=== PATIENT | male | born 1955 | race Two or more races ===

== ENCOUNTER 2021-06-18 11:58 | Inpatient (IN) | payer OTHER, MEDICARE ==
[2021-06-18] VITALS (7 sets, daily range): BP systolic 103–124; BP diastolic 66–88
[~2021-06-18] VITALS: Ht 154.3 cm; Wt 99.3 kg
[2021-06-18] MEDS ORDERED: cefTRIAXone 1GM/50ML D5W 50 ML IV ONE (12:15)
[2021-06-18] MEDS ORDERED: DOXYCYCLINE 100MG/250ML 250 ML IV ONE (12:15)
[2021-06-18] MEDS ORDERED: DexAMETHasone SOD PHOS 10MG/1ML VIAL INJ IV ONE (12:15)
[2021-06-18 12:43] LABS: Urine Bacteria NONE SEEN /hpf (None Seen); Urine Blood 2+ /uL (Negative); Urine Hyaline Cast FEW /lpf (0 - 2); Urine Mucus FEW (None Seen); Urine Specific Gravity 1.017 (1.001-1.035); Urine WBC 2 /hpf (0 - 3)
[2021-06-18 12:44] LABS: Basophils # (auto) 0 10 ^3/uL (0-0.2); Basophils % (auto) 0.2 % (0.0-2.0); Eosinophils # (auto) 0 10 ^3/uL (0-0.8); Hematocrit 43.6 % (41.0-53.0); Hemoglobin 15.4 g/dL (13.5-17.5); Lymphocytes # (auto) 0.5 10 ^3/uL (0.4-5.4); Lymphocytes % (auto) 4.4 % (10.0-50.0); Mean Corpuscular Hemoglobin 32.2 pg (28.0-32.0); Mean Corpuscular Hgb Conc. 35.3 g/dL (32.0-36.0); Mean Corpuscular Volume 91.3 fL (80.0-100.0); Monocytes # (auto) 0.7 10 ^3/uL (0-1.3); Monocytes % (auto) 5.9 % (0.0-12.0); Neutrophils # (auto) 9.9 10 ^3/uL (1.6-8.6); Neutrophils % (auto) 89.5 % (37.0-80.0); Nucleated Red Blood Cells % 0.3 %; Red Blood Cells 4.77 10^6/uL (4.5-5.90); Red Cell Distribution Width 12.6 % (11.8-14.3)
[2021-06-18 13:00] LABS: Albumin 2.6 g/dL (3.4-5.0); Calcium 7.8 mg/dL (8.5-10.1); Potassium 3.8 mmol/L (3.5-5.1)
[2021-06-18 13:02] LABS: Lactic Acid w/Reflex 4.6 mmol/L (0.4-2.0)
[2021-06-18 13:24] LABS: BUN/Creatinine Ratio 21.4; Bilirubin, Total 1.2 mg/dL (0.2-1.0); Total Protein 6.9 g/dL (6.4-8.2)
[2021-06-18] MEDS ORDERED: ENOXAPARIN SOD 80 MG/0.8ML SYRINGE SC ONE (13:45)
[2021-06-18] MEDS ORDERED: REMDESIVIR PER PHARMACY 0 ML IV SCH (14:30)
[2021-06-18] MEDS ORDERED: ACETAMINOPHEN 500 MG TAB PO PRN ×2 (14:30)
[2021-06-18] MEDS ORDERED: ALBUTEROL SULF HFA 90MCG INH 200DOSE IN PRN (14:30)
[2021-06-18] MEDS ORDERED: SODIUM CHLORIDE 0.9% 1,000 ML IV ONE (14:30)
[2021-06-18] MEDS ORDERED: HYDROcodone-ACET 5/325MG TAB PO PRN (14:30)
[2021-06-18] MEDS ORDERED: MORPHINE SULFATE INJECTION 2 MG/ML SYRG IV PRN ×2 (14:30)
[2021-06-18] MEDS ORDERED: NITROGLYCERIN 0.4 MG SL TAB SL PRN (14:30)
[2021-06-18] MEDS: DOXYCYCLINE 100MG/250ML 250 ML IV SCH (21:57)
[2021-06-18] MEDS: ENOXAPARIN SOD 40 MG/0.4 ML SYRINGE SC SCH (21:58)
[2021-06-18] MEDS ORDERED: BUDESONIDE (INHALATION) 180 MCG IH IN SCH (22:00)
[2021-06-18] MEDS ORDERED: BUDESONIDE (INHALATION) 0.5 MG/2 ML NEB ONE (22:39)
[2021-06-18] MEDS: ALBUTEROL SULF 2.5 MG/0.5ML(0.5%) NEB SOLN NEB PRN (22:55)
[2021-06-19] VITALS (9 sets, daily range): BP systolic 118–132; BP diastolic 77–92
[2021-06-19] MEDS: ALBUTEROL SULF 2.5 MG/0.5ML(0.5%) NEB SOLN NEB PRN ×3 (05:51→21:44)
[2021-06-19] MEDS: BUDESONIDE (INHALATION) 0.5 MG/2 ML NEB NEB SCH ×2 (05:51→21:44)
[2021-06-19] MEDS: ZINC SULFATE 220mg CAP or TAB PO SCH (10:00)
[2021-06-19] MEDS: DOXYCYCLINE 100MG/250ML 250 ML IV SCH ×2 (10:00→21:53)
[2021-06-19] MEDS: cefTRIAXone 1GM/50ML D5W 50 ML IV SCH (10:40)
[2021-06-19] MEDS: DexAMETHasone SOD PHOS 10MG/1ML VIAL INJ IV SCH (10:50)
[2021-06-19] MEDS: CHOLECALCIFEROL (VITD3) 2,000 UNIT CAP/TAB PO SCH (10:50)
[2021-06-19] MEDS: ASCORBIC ACID 1,000 MG TAB PO SCH (10:50)
[2021-06-19] MEDS: IVERMECTIN 3 MG TAB PO SCH (10:50)
[2021-06-19] MEDS: ENOXAPARIN SOD 40 MG/0.4 ML SYRINGE SC SCH ×2 (10:51→21:53)
[2021-06-20] VITALS (8 sets, daily range): BP systolic 105–140; BP diastolic 79–94
[2021-06-20] MEDS: NOREPINEPHRINE 8 MG/250ML KIT 250 ML IV SCH (03:15)
[2021-06-20 08:31] LABS: Hemoglobin 13.1 g/dL (13.5-17.5); Mean Corpuscular Hemoglobin 32.1 pg (28.0-32.0); Mean Corpuscular Hgb Conc. 35.5 g/dL (32.0-36.0); Mean Corpuscular Volume 90.5 fL (80.0-100.0); Red Blood Cells 4.09 10^6/uL (4.5-5.90); Red Cell Distribution Width 12.7 % (11.8-14.3); White Blood Cell 15.8 10^3/uL (4.4-10.8)
[2021-06-20 08:44] LABS: BUN/Creatinine Ratio 21.4; Calcium 8.1 mg/dL (8.5-10.1); Potassium 3.6 mmol/L (3.5-5.1)
[2021-06-20 08:55] LABS: Basophils % (manual) 0 (0.0-2.0); Blast Cells 0; Eosinophils % (manual) 0 (0-7); Promyelocytes % 0; Reactive Lymphocytes 0
[2021-06-20] MEDS: cefTRIAXone 1GM/50ML D5W 50 ML IV SCH (09:26)
[2021-06-20] MEDS: ZINC SULFATE 220mg CAP or TAB PO SCH (09:27)
[2021-06-20] MEDS: DexAMETHasone SOD PHOS 10MG/1ML VIAL INJ IV SCH (09:27)
[2021-06-20] MEDS: IVERMECTIN 3 MG TAB PO SCH (09:27)
[2021-06-20] MEDS: ASCORBIC ACID 1,000 MG TAB PO SCH (09:28)
[2021-06-20] MEDS: CHOLECALCIFEROL (VITD3) 2,000 UNIT CAP/TAB PO SCH (09:28)
[2021-06-20] MEDS: ENOXAPARIN SOD 40 MG/0.4 ML SYRINGE SC SCH ×2 (09:29→22:24)
[2021-06-20] MEDS ORDERED: REMDESIVIR PER PHARMACY 0 ML IV SCH ×2 (09:45→10:00)
[2021-06-20] MEDS: BUDESONIDE (INHALATION) 0.5 MG/2 ML NEB NEB SCH ×2 (10:00→23:08)
[2021-06-20] MEDS: DOXYCYCLINE 100MG/250ML 250 ML IV SCH ×2 (10:43→22:24)
[2021-06-20] MEDS ORDERED: REMDESIVIR 200 MG in NS 210ml LOADING DOSE ADULT IV ONE (11:00)
[2021-06-20] MEDS: ALBUTEROL SULF 2.5 MG/0.5ML(0.5%) NEB SOLN NEB PRN ×2 (11:16→23:08)
[2021-06-20 11:28] LABS: Band Neutrophils % (manual) 2; Lymphocytes % (manual) 4 (10.0-50.0); Metamyelocytes % 3; Monocytes % (manual) 3 (0-12); Myelocytes % 1
[2021-06-20] MEDS ORDERED: LORazepam 2MG/ML-1ML VIAL IV ONE (17:30)
[2021-06-20] MEDS ORDERED: LORazepam 2MG/ML-1ML VIAL ONE (17:31)
[2021-06-20] MEDS ORDERED: SUCCINYLCHOLINE CHLORIDE 20 MG/ML 10ML VIAL IV ONE ×2 (18:40→18:45)
[2021-06-20] MEDS ORDERED: MIDAZOLAM DRIP 50 mg/50mL 50 ML IV ONE (18:40)
[2021-06-20] MEDS ORDERED: ETOMIDATE (2MG/ML) 20ML VIAL IV ONE ×2 (18:40→18:45)
[2021-06-20] MEDS ORDERED: fentaNYL Drip 2500mCg/250mlNS 250 ML IV SCH (18:45)
[2021-06-20] MEDS ORDERED: PROPOFOL 100 ML IV ONE (18:55)
[2021-06-20] MEDS: PROPOFOL 100 ML IV SCH (19:00)
[2021-06-20] MEDS: MIDAZOLAM DRIP 50 mg/50mL 50 ML IV SCH ×2 (19:00→23:45)
[2021-06-20] MEDS: fentaNYL Drip 2500mCg/250mlNS 250 ML IV SCH (20:20)
[2021-06-20] MEDS ORDERED: MORPHINE SULFATE INJECTION 2 MG/ML SYRG IV ONE (20:45)
[2021-06-20] MEDS: ROCURONIUM 10MG/ML 10ML VIAL IV PRN (21:51)
[2021-06-21] VITALS (9 sets, daily range): BP systolic 90–107; BP diastolic 56–73
[2021-06-21] MEDS: MIDAZOLAM DRIP 50 mg/50mL 50 ML IV SCH ×4 (04:45→21:05)
[2021-06-21] MEDS: ALBUTEROL SULF 2.5 MG/0.5ML(0.5%) NEB SOLN NEB PRN ×2 (06:27→22:00)
[2021-06-21] MEDS: BUDESONIDE (INHALATION) 0.5 MG/2 ML NEB NEB SCH ×2 (06:28→22:00)
[2021-06-21 07:36] LABS: Hematocrit 39.5 % (41.0-53.0); Hemoglobin 13.5 g/dL (13.5-17.5); Mean Corpuscular Hemoglobin 32.3 pg (28.0-32.0); Mean Corpuscular Hgb Conc. 34.2 g/dL (32.0-36.0); Mean Corpuscular Volume 94.6 fL (80.0-100.0); Red Blood Cells 4.17 10^6/uL (4.5-5.90); Red Cell Distribution Width 13.1 % (11.8-14.3); White Blood Cell 24.1 10^3/uL (4.4-10.8)
[2021-06-21 07:49] LABS: Band Neutrophils % (manual) 0; Basophils % (manual) 0 (0.0-2.0); Blast Cells 0; Eosinophils % (manual) 0 (0-7); Metamyelocytes % 0; Myelocytes % 0; Promyelocytes % 0; Reactive Lymphocytes 0
[2021-06-21 07:54] LABS: Albumin 2.3 g/dL (3.4-5.0); BUN/Creatinine Ratio 18.8; Bilirubin, Total 1.3 mg/dL (0.2-1.0); Calcium 7.9 mg/dL (8.5-10.1); Total Protein 6.3 g/dL (6.4-8.2)
[2021-06-21] MEDS ORDERED: SODIUM BICARBONATE 50ML VIAL 75 ML in SOD CHL 0.45% 1,000 ML IV ONE (09:00)
[2021-06-21] MEDS: cefTRIAXone 1GM/50ML D5W 50 ML IV SCH (09:25)
[2021-06-21] MEDS ORDERED: PANTOPRAZOLE 40 MG/10 ML VIAL INJ IV SCH (10:00)
[2021-06-21] MEDS: DexAMETHasone SOD PHOS 10MG/1ML VIAL INJ IV SCH (10:10)
[2021-06-21] MEDS: ENOXAPARIN SOD 40 MG/0.4 ML SYRINGE SC SCH ×2 (10:10→22:10)
[2021-06-21] MEDS: ASCORBIC ACID 1,000 MG TAB PO SCH (10:11)
[2021-06-21] MEDS: PANTOPRAZOLE 40 MG TAB PO SCH (10:11)
[2021-06-21] MEDS: IVERMECTIN 3 MG TAB PO SCH (10:11)
[2021-06-21] MEDS: ZINC SULFATE 220mg CAP or TAB PO SCH (10:11)
[2021-06-21] MEDS: CHOLECALCIFEROL (VITD3) 2,000 UNIT CAP/TAB PO SCH (10:11)
[2021-06-21] MEDS: DOXYCYCLINE 100MG/250ML 250 ML IV SCH ×2 (10:24→22:10)
[2021-06-21 14:35] LABS: Lymphocytes % (manual) 1 (10.0-50.0); Monocytes % (manual) 5 (0-12)
[2021-06-21] MEDS ORDERED: REMDESIVIR 100mg 100 MG in SODIUM CHL 0.9% 230 ML IV SCH (15:00)
[2021-06-21] MEDS: fentaNYL Drip 2500mCg/250mlNS 250 ML IV SCH (15:28)
[2021-06-21] MEDS: PROPOFOL 100 ML IV SCH (15:38)
[2021-06-21] MEDS ORDERED: SODIUM BICARBONATE 8.4% INJ 50ML SYRINGE ONE (17:23)
[2021-06-21] MEDS ORDERED: SODIUM BICARBONATE 8.4 % INJ 50ML VIAL IV ONE (17:30)
[2021-06-21] MEDS: NOREPINEPHRINE 8 MG/250ML KIT 250 ML IV SCH (21:06)
[2021-06-22] VITALS (12 sets, daily range): BP systolic 96–110; BP diastolic 61–72
[2021-06-22] MEDS: MIDAZOLAM DRIP 50 mg/50mL 50 ML IV SCH ×5 (00:45→21:01)
[2021-06-22] MEDS: BUDESONIDE (INHALATION) 0.5 MG/2 ML NEB NEB SCH (05:51)
[2021-06-22] MEDS: ALBUTEROL SULF 2.5 MG/0.5ML(0.5%) NEB SOLN NEB PRN (05:51)
[2021-06-22 06:09] LABS: Hematocrit 34.2 % (41.0-53.0); Hemoglobin 12.3 g/dL (13.5-17.5); Mean Corpuscular Hemoglobin 33.2 pg (28.0-32.0); Mean Corpuscular Hgb Conc. 35.9 g/dL (32.0-36.0); Mean Corpuscular Volume 92.4 fL (80.0-100.0); Red Blood Cells 3.71 10^6/uL (4.5-5.90); Red Cell Distribution Width 12.9 % (11.8-14.3)
[2021-06-22 06:26] LABS: Potassium 4.6 mmol/L (3.5-5.1)
[2021-06-22 06:35] LABS: BUN/Creatinine Ratio 17.2; Bilirubin, Total 1.5 mg/dL (0.2-1.0); Calcium 7.3 mg/dL (8.5-10.1); Total Protein 5.6 g/dL (6.4-8.2)
[2021-06-22 07:00] LABS: Basophils % (manual) 0 (0.0-2.0); Blast Cells 0; Eosinophils % (manual) 0 (0-7); Metamyelocytes % 0; Promyelocytes % 0; Reactive Lymphocytes 0
[2021-06-22 08:29] LABS: Albumin 0.2 g/dL (3.4-5.0)
[2021-06-22] MEDS: cefTRIAXone 1GM/50ML D5W 50 ML IV SCH (09:00)
[2021-06-22] MEDS: DexAMETHasone SOD PHOS 10MG/1ML VIAL INJ IV SCH (09:33)
[2021-06-22] MEDS: ZINC SULFATE 220mg CAP or TAB PO SCH (09:34)
[2021-06-22] MEDS: ENOXAPARIN SOD 40 MG/0.4 ML SYRINGE SC SCH ×2 (09:34→22:05)
[2021-06-22] MEDS: PANTOPRAZOLE 40 MG TAB PO SCH (09:34)
[2021-06-22] MEDS: CHOLECALCIFEROL (VITD3) 2,000 UNIT CAP/TAB PO SCH (09:34)
[2021-06-22] MEDS: ASCORBIC ACID 1,000 MG TAB PO SCH (09:34)
[2021-06-22] MEDS: IVERMECTIN 3 MG TAB PO SCH (09:34)
[2021-06-22] MEDS: DOXYCYCLINE 100MG/250ML 250 ML IV SCH ×2 (10:20→22:05)
[2021-06-22 16:42] LABS: Band Neutrophils % (manual) 1; Lymphocytes % (manual) 3 (10.0-50.0); Monocytes % (manual) 3 (0-12); Myelocytes % 1
[2021-06-22] MEDS ORDERED: BUMETANIDE 2.5mg/10ml (0.25 mg/ml) INJ IV ONE (17:15)
[2021-06-22] MEDS: PROPOFOL 100 ML IV SCH (18:41)
[2021-06-22] MEDS: NOREPINEPHRINE 8 MG/250ML KIT 250 ML IV SCH (20:30)
[2021-06-22] MEDS: fentaNYL Drip 2500mCg/250mlNS 250 ML IV SCH (21:06)
[2021-06-23] VITALS (8 sets, daily range): BP systolic 109–117; BP diastolic 40–76
[2021-06-23] MEDS: MIDAZOLAM DRIP 50 mg/50mL 50 ML IV SCH ×5 (01:45→18:36)
[2021-06-23] MEDS: BUDESONIDE (INHALATION) 0.5 MG/2 ML NEB NEB SCH ×3 (03:59→22:26)
[2021-06-23] MEDS: ALBUTEROL SULF 2.5 MG/0.5ML(0.5%) NEB SOLN NEB PRN ×2 (06:58→22:26)
[2021-06-23 07:11] LABS: Albumin 1.7 g/dL (3.4-5.0); BUN/Creatinine Ratio 15.9; Calcium 7.3 mg/dL (8.5-10.1)
[2021-06-23 07:14] LABS: Total Protein 5.7 g/dL (6.4-8.2)
[2021-06-23 07:21] LABS: Hematocrit 35.2 % (41.0-53.0); Hemoglobin 12.2 g/dL (13.5-17.5); Mean Corpuscular Hemoglobin 32.7 pg (28.0-32.0); Mean Corpuscular Hgb Conc. 34.6 g/dL (32.0-36.0); Mean Corpuscular Volume 94.4 fL (80.0-100.0); Red Blood Cells 3.73 10^6/uL (4.5-5.90); White Blood Cell 16.9 10^3/uL (4.4-10.8)
[2021-06-23 07:22] LABS: Basophils % (manual) 0 (0.0-2.0); Blast Cells 0; Eosinophils % (manual) 0 (0-7); Myelocytes % 0; Promyelocytes % 0; Reactive Lymphocytes 0
[2021-06-23 08:21] LABS: Band Neutrophils % (manual) 9; Lymphocytes % (manual) 3 (10.0-50.0); Metamyelocytes % 1; Monocytes % (manual) 3 (0-12)
[2021-06-23] MEDS: cefTRIAXone 1GM/50ML D5W 50 ML IV SCH (09:00)
[2021-06-23] MEDS: DexAMETHasone SOD PHOS 10MG/1ML VIAL INJ IV SCH (10:00)
[2021-06-23] MEDS: CHOLECALCIFEROL (VITD3) 2,000 UNIT CAP/TAB PO SCH (10:00)
[2021-06-23] MEDS: IVERMECTIN 3 MG TAB PO SCH (10:00)
[2021-06-23] MEDS: ASCORBIC ACID 1,000 MG TAB PO SCH (10:00)
[2021-06-23] MEDS: PANTOPRAZOLE 40 MG TAB PO SCH (10:00)
[2021-06-23] MEDS: DOXYCYCLINE 100MG/250ML 250 ML IV SCH (10:00)
[2021-06-23] MEDS: ZINC SULFATE 220mg CAP or TAB PO SCH (10:00)
[2021-06-23] MEDS: ENOXAPARIN SOD 40 MG/0.4 ML SYRINGE SC SCH (10:00)
[2021-06-23] MEDS: NOREPINEPHRINE 8 MG/250ML KIT 250 ML IV SCH (18:37)
[2021-06-23] MEDS: fentaNYL Drip 2500mCg/250mlNS 250 ML IV SCH (21:26)
[2021-06-23] MEDS: PROPOFOL 100 ML IV SCH (21:45)
[2021-06-23] MEDS ORDERED: HEPARIN SODIUM (PORCINE) 5000 UNITS/ML 1ML VIAL ONE (23:59)
[2021-06-24] VITALS (13 sets, daily range): BP systolic 82–125; BP diastolic 48–72
[2021-06-24] MEDS: HEPARIN SODIUM (PORCINE) 5000 UNITS/ML 1ML VIAL SC SCH ×3 (00:01→22:19)
[2021-06-24] MEDS: MIDAZOLAM DRIP 50 mg/50mL 50 ML IV SCH ×5 (01:26→22:45)
[2021-06-24] MEDS ORDERED: PROPOFOL 100 ML IV ONE (04:03)
[2021-06-24] MEDS ORDERED: BUDESONIDE (INHALATION) 0.5 MG/2 ML NEB ONE (05:29)
[2021-06-24] MEDS ORDERED: MIDAZOLAM DRIP 50 mg/50mL 50 ML IV ONE ×2 (06:32)
[2021-06-24 06:41] LABS: Hematocrit 35.5 % (41.0-53.0); Hemoglobin 12.3 g/dL (13.5-17.5); Mean Corpuscular Hemoglobin 32.7 pg (28.0-32.0); Mean Corpuscular Hgb Conc. 34.8 g/dL (32.0-36.0); Mean Corpuscular Volume 94.1 fL (80.0-100.0); Red Blood Cells 3.77 10^6/uL (4.5-5.90); Red Cell Distribution Width 12.8 % (11.8-14.3); White Blood Cell 14.7 10^3/uL (4.4-10.8)
[2021-06-24 06:54] LABS: Basophils % (manual) 0 (0.0-2.0); Blast Cells 0; Eosinophils % (manual) 0 (0-7); Myelocytes % 0; Promyelocytes % 0; Reactive Lymphocytes 0
[2021-06-24 06:56] LABS: Albumin 1.7 g/dL (3.4-5.0); Calcium 7.3 mg/dL (8.5-10.1)
[2021-06-24 07:00] LABS: BUN/Creatinine Ratio 16.6; Bilirubin, Total 2.3 mg/dL (0.2-1.0); Total Protein 6.1 g/dL (6.4-8.2)
[2021-06-24] MEDS: BUDESONIDE (INHALATION) 0.5 MG/2 ML NEB NEB SCH ×2 (07:36→18:54)
[2021-06-24 07:40] LABS: Band Neutrophils % (manual) 3; Lymphocytes % (manual) 3 (10.0-50.0); Metamyelocytes % 1; Monocytes % (manual) 4 (0-12)
[2021-06-24] MEDS ORDERED: SODIUM BICARBONATE 8.4 % INJ 50ML VIAL IV ONE ×2 (09:15→10:30)
[2021-06-24 09:20] LABS: Potassium 5.7 mmol/L (3.5-5.1)
[2021-06-24] MEDS: PANTOPRAZOLE 40 MG TAB PO SCH (10:00)
[2021-06-24] MEDS: cefTRIAXone 1GM/50ML D5W 50 ML IV SCH (10:19)
[2021-06-24] MEDS: ZINC SULFATE 220mg CAP or TAB PO SCH (10:20)
[2021-06-24] MEDS: DexAMETHasone SOD PHOS 10MG/1ML VIAL INJ IV SCH (10:20)
[2021-06-24] MEDS: ASCORBIC ACID 1,000 MG TAB PO SCH (10:21)
[2021-06-24] MEDS: CHOLECALCIFEROL (VITD3) 2,000 UNIT CAP/TAB PO SCH (10:21)
[2021-06-24] MEDS ORDERED: SODIUM BICARBONATE 50ML VIAL 50 ML in SOD CHL 0.45% 1,000 ML IV ONE (13:00)
[2021-06-24] MEDS: SODIUM BICARBONATE 50ML VIAL 150 ML in D5W 5% 1,000 ML IV SCH (13:41)
[2021-06-24] MEDS ORDERED: CALCIUM CHL 100MG/ML 1,000 MG in D5W 5% 100 ML IV ONE (15:15)
[2021-06-24] MEDS ORDERED: DEXTROSE (50%) 50ML SYRG IV ONE (15:15)
[2021-06-24] MEDS ORDERED: InsuLIN REG 1unit/0.01ml Soln (100units/ml) IV ONE (15:15)
[2021-06-24] MEDS ORDERED: Jevity 1.2 Cal/Fiber 1 Liter GT SCH (16:45)
[2021-06-24] MEDS: PROPOFOL 100 ML IV SCH (17:57)
[2021-06-24] MEDS: fentaNYL Drip 2500mCg/250mlNS 250 ML IV SCH (18:14)
[2021-06-24] MEDS: ALBUTEROL SULF 2.5 MG/0.5ML(0.5%) NEB SOLN NEB PRN (18:54)
[2021-06-24 20:15] LABS: BUN/Creatinine Ratio 16.6; Calcium 7.6 mg/dL (8.5-10.1); Potassium 5.4 mmol/L (3.5-5.1)
[2021-06-24] MEDS: NOREPINEPHRINE 8 MG/250ML KIT 250 ML IV SCH (20:30)
[2021-06-25] VITALS (55 sets, daily range): BP systolic 75–148; BP diastolic 42–80
[2021-06-25] MEDS ORDERED: DIGOXIN (250MCG/ML) 2 ML AMPULE IV ONE (02:00)
[2021-06-25 03:00] LABS: Magnesium 3.4 mg/dL (1.6-2.6)
[2021-06-25 03:02] LABS: INR 1.21 (0.9-1.15); Partial Thromboplastin Time 28.6 sec (23.6-33.0)
[2021-06-25] MEDS ORDERED: NOREPINEPHRINE 8 MG/250ML KIT 0 ML IV ONE (03:18)
[2021-06-25] MEDS ORDERED: PHENYLEPHRINE HCL 10 MG/ML VL ONE (03:18)
[2021-06-25] MEDS ORDERED: ANGIOMAX 250 MG VIAL IV ONE (03:18)
[2021-06-25] MEDS ORDERED: SODIUM CHL 0.9% 0 ML ONE (03:18)
[2021-06-25] MEDS ORDERED: ADENOSINE 6 MG/2 ML INJ IV ONE (03:18)
[2021-06-25 03:21] LABS: Phosphorus 10.5 mg/dL (2.5-4.90)
[2021-06-25] MEDS ORDERED: LIDOCAINE 2%HCL (LOCAL ANESTH.) INJ 20ML MDV ONE (03:21)
[2021-06-25] MEDS ORDERED: IODIXANOL 320MG/ML 100ML BTL IV ONE (03:21)
[2021-06-25] MEDS ORDERED: HEPARIN IN NS 1000Units/500mL 0 ML ONE (03:21)
[2021-06-25] MEDS ORDERED: HEPARIN SODIUM (PORCINE) 5000 UNITS/ML 1ML VIAL IV ONE ×2 (03:45→08:45)
[2021-06-25] MEDS ORDERED: HEPARIN DRIP/D5W 100UNITS/ML 250 ML IV SCH (03:45)
[2021-06-25] MEDS ORDERED: HEPARIN SODIUM (PORCINE) 5000 UNITS/ML 1ML VIAL ONE ×2 (03:46→08:29)
[2021-06-25] MEDS: MIDAZOLAM DRIP 50 mg/50mL 50 ML IV SCH ×6 (04:00→23:20)
[2021-06-25] MEDS ORDERED: ASPirin 81 mg TAB PO ONE ×3 (04:15→04:30)
[2021-06-25] MEDS ORDERED: ASPirin 81 mg TAB PO SCH (04:15)
[2021-06-25] MEDS: BUDESONIDE (INHALATION) 0.5 MG/2 ML NEB NEB SCH ×2 (06:04→22:10)
[2021-06-25] MEDS: ALBUTEROL SULF 2.5 MG/0.5ML(0.5%) NEB SOLN NEB PRN ×2 (06:04→22:10)
[2021-06-25 08:12] LABS: Basophils # (auto) 0 10 ^3/uL (0-0.2); Basophils % (auto) 0.1 % (0.0-2.0); Eosinophils # (auto) 0 10 ^3/uL (0-0.8); Hematocrit 37.2 % (41.0-53.0); Hemoglobin 12.3 g/dL (13.5-17.5); Lymphocytes # (auto) 0.2 10 ^3/uL (0.4-5.4); Lymphocytes % (auto) 1.8 % (10.0-50.0); Mean Corpuscular Hemoglobin 31.8 pg (28.0-32.0); Mean Corpuscular Hgb Conc. 32.9 g/dL (32.0-36.0); Mean Corpuscular Volume 96.4 fL (80.0-100.0); Monocytes # (auto) 0.2 10 ^3/uL (0-1.3); Monocytes % (auto) 1.8 % (0.0-12.0); Neutrophils # (auto) 8.3 10 ^3/uL (1.6-8.6); Neutrophils % (auto) 96.3 % (37.0-80.0); Nucleated Red Blood Cells % 0.2 %; Red Blood Cells 3.86 10^6/uL (4.5-5.90); Red Cell Distribution Width 13.5 % (11.8-14.3); White Blood Cell 8.6 10^3/uL (4.4-10.8)
[2021-06-25 08:24] LABS: Calcium 7.1 mg/dL (8.5-10.1); Chloride 97 mmol/L (98-107); Potassium 5.4 mmol/L (3.5-5.1); Sodium 138 mmol/L (136-145)
[2021-06-25 08:29] LABS: Anion Gap 24 (5-15); BUN/Creatinine Ratio 15.5; Carbon Dioxide 17 mmol/L (21-32); GFR African American 7 mL/min; GFR Non-African American 6 mL/min; Glucose 77 mg/dL (74-106)
[2021-06-25 08:45] LABS: Blood Urea Nitrogen 150 mg/dL (7-18)
[2021-06-25] MEDS: cefTRIAXone 1GM/50ML D5W 50 ML IV SCH (09:14)
[2021-06-25] MEDS: ZINC SULFATE 220mg CAP or TAB PO SCH (09:19)
[2021-06-25] MEDS: CHOLECALCIFEROL (VITD3) 2,000 UNIT CAP/TAB PO SCH (09:19)
[2021-06-25] MEDS: DexAMETHasone SOD PHOS 10MG/1ML VIAL INJ IV SCH (09:19)
[2021-06-25] MEDS ORDERED: PANTOPRAZOLE 40 MG/10 ML VIAL INJ IV SCH (10:00)
[2021-06-25 10:10] LABS: INR 1.3 (0.9-1.15); Partial Thromboplastin Time 40.9 sec (23.6-33.0)
[2021-06-25] MEDS: ASCORBIC ACID 1,000 MG TAB PO SCH (10:20)
[2021-06-25 10:46] LABS: INR 1.35 (0.9-1.15)
[2021-06-25 11:15] LABS: Partial Thromboplastin Time 76.9 sec (23.6-33.0)
[2021-06-25] MEDS: SODIUM BICARBONATE 50ML VIAL 150 ML in D5W 5% 1,000 ML IV SCH (12:15)
[2021-06-25] MEDS: PHENYLEPHRINE IV 250 ML IV SCH ×2 (15:00→20:54)
[2021-06-25] MEDS ORDERED: VASOPRESSIN 50 UNITS in D5W 5% 247.5 ML IV SCH (17:00)
[2021-06-25] MEDS: fentaNYL Drip 2500mCg/250mlNS 250 ML IV SCH (17:45)
[2021-06-25] MEDS: PROPOFOL 100 ML IV SCH ×2 (18:51→22:39)
[2021-06-25] MEDS ORDERED: PHENYLEPHRINE IV 250 ML IV SCH (19:00)
[2021-06-25] MEDS ORDERED: NOREPINEPHRINE 8 MG/250ML KIT 250 ML IV SCH (19:00)
[2021-06-25 19:23] LABS: INR 1.38 (0.9-1.15)
[2021-06-25 19:32] LABS: Partial Thromboplastin Time 80.4 sec (23.6-33.0)
[2021-06-25] MEDS: NOREPINEPHRINE 8 MG/250ML KIT 250 ML IV SCH (20:00)
[2021-06-25] MEDS: EPINEPHrine HCL 250 ML IV SCH (20:00)
[2021-06-25] MEDS ORDERED: PHENYLEPHRINE INJ 80 MG in SODIUM CHL 0.9% 242 ML IV SCH (21:15)
[2021-06-25] MEDS ORDERED: NOREPINEPHRINE BITARTRATE 32 MG in SODIUM CHL 0.9% 218 ML IV SCH (21:15)
[2021-06-25] MEDS: ROCURONIUM 10MG/ML 10ML VIAL IV PRN (22:42)
[2021-06-26] VITALS (14 sets, daily range): BP systolic 77–131; BP diastolic 37–95
[2021-06-26] MEDS: EPINEPHrine HCL 250 ML IV SCH (01:09)
[2021-06-26] MEDS: PROPOFOL 100 ML IV SCH (01:49)
[2021-06-26 03:33] LABS: INR 1.57 (0.9-1.15); Partial Thromboplastin Time 60.6 sec (23.6-33.0)
[2021-06-26] MEDS ORDERED: SODIUM BICARBONATE 8.4% INJ 50ML SYRINGE ONE (03:44)
[2021-06-26] MEDS ORDERED: DEXTROSE 50% SYRINGE 100 ML IV ONE (03:49)
[2021-06-26] MEDS ORDERED: EPINEPHrine HCL 1 MG/10 ML SYRG ONE (03:50)
[2021-06-26] MEDS ORDERED: DEXTROSE (50%) 50ML SYRG IV ONE (08:46)
[2021-06-26] MEDS ORDERED: SODIUM BICARBONATE 8.4% INJ 50ML SYRINGE IV ONE (08:46)
[2021-06-26] MEDS ORDERED: EPINEPHrine HCL 1 MG/10 ML SYRG IV ONE (08:46)
[2021-06-26] MEDS ORDERED: CALCIUM CHLOR(10%) 100MG/ML 10ML SYRINGE IV ONE (08:46)
== END 2021-06-26 08:47 | DRG 870 ==
LOC: ER 11:58 → EDBD 11:58 → TELE 14:25 → ICU WEST 06-25 12:18
PROVIDERS: ADMIT Nurse Practitioner Acute Care; ATTEND Internal Medicine Pulmonary Disease
PROC: 5A09357 Assistance with Respiratory Ventilation, Less than 24 Consecutive Hours, Continuous Positive Airway Pressure (ICD-10-PCS; 2021-06-18)
PROC: 5A1955Z Respiratory Ventilation, Greater than 96 Consecutive Hours (ICD-10-PCS; principal; 2021-06-20)
PROC: 0BH17EZ Insertion of Endotracheal Airway into Trachea, Via Natural or Artificial Opening (ICD-10-PCS; 2021-06-20)
PROC: XW033E5 Introduction of Remdesivir Anti-infective into Peripheral Vein, Percutaneous Approach, New Technology Group 5 (ICD-10-PCS; 2021-06-20)
PROC: 05HM33Z Insertion of Infusion Device into Right Internal Jugular Vein, Percutaneous Approach (ICD-10-PCS; 2021-06-20)
PROC: B543ZZA Ultrasonography of Right Jugular Veins, Guidance (ICD-10-PCS; 2021-06-20)
PROC: 06HN33Z Insertion of Infusion Device into Left Femoral Vein, Percutaneous Approach (ICD-10-PCS; 2021-06-25)
PROC: 5A1D70Z Performance of Urinary Filtration, Intermittent, Less than 6 Hours Per Day (ICD-10-PCS; 2021-06-25)
PROC: 5A12012 Performance of Cardiac Output, Single, Manual (ICD-10-PCS; 2021-06-26)
DX: A41.9 Sepsis, unspecified organism (principal); J12.82 Pneumonia due to coronavirus disease 2019; J96.01 Acute respiratory failure with hypoxia; N17.0 Acute kidney failure with tubular necrosis; R65.21 Severe sepsis with septic shock; U07.1 COVID-19; I46.9 Cardiac arrest, cause unspecified; E66.9 Obesity, unspecified; E87.5 Hyperkalemia; D89.839 Cytokine release syndrome, grade unspecified; E16.2 Hypoglycemia, unspecified; I10 Essential (primary) hypertension; I25.2 Old myocardial infarction
CPT/HCPCS: 36415; 36600; 71045; 80048; 80053; 81001; 82728; 82805; 82962; 83605; 83735; 83880; 84100; 84484; 85007; 85025; 85027; 85379; 85610; 85730; 86141; 86850; 86900; 86901; 87040; 87070; 87077; 87081; 87186; 87205; 87340; 87426; 90935; 92950; 93005; 93306; 93970; 94002; 94003; 94640; 94660; 96365; 96366; 96368; 96372; 96375; 99291; C9113; G0378; J0153; J0171; J0330; J0696; J1100; J2250; J2704; J3490; J7060; Q9967